=== PATIENT | male | born 1970 | race Caucasian/White ===

== ENCOUNTER 2017-08-09 15:44 | Emergency (ER) | payer OTHER ==
[~2017-08-09] VITALS: Ht 177.8 cm; Wt 77.4 kg
[~2017-08-09 15:44] MED LIST: HYDROCODON-ACE1 EAC2 PO
[2017-08-09] MEDS ORDERED: CLONIDINE HCL0.1 MG PO (19:55)
[2017-08-09] MEDS ORDERED: TRAZODONE HCL50 MG PO (19:55)
[2017-08-09 20:41] VITALS: BP 111/84
== END 2017-08-09 20:41 | disposition home or self-care (01) ==
LOC: EME 15:44
DX: F11.10 Opioid abuse, uncomplicated (principal); F32.9 Major depressive disorder, single episode, unspecified; F31.9 Bipolar disorder, unspecified; F17.200 Nicotine dependence, unspecified, uncomplicated; Z88.8 Allergy status to other drugs, medicaments and biological substances
CPT/HCPCS: 99281; 99284